=== PATIENT | male | born 1955 | race African-American/Black ===

== ENCOUNTER 2017-04-23 19:15 | Emergency (ER) | payer MEDICAID ==
[~2017-04-23] VITALS: Ht 172.7 cm; Wt 104.3 kg
[2017-04-23 19:45] VITALS: BP_SYST 117
[2017-04-23] MEDS ORDERED: methylPREDNISolone SOD SUCC/PF 62.5 MG/ML VIAL IM ONE (21:00)
[2017-04-23] MEDS ORDERED: DIPHENHYDRAMINE HCL 50 MG CAPSULE PO ONE (21:00)
[2017-04-23 21:25] VITALS: BP_SYST 118
== END 2017-04-23 21:28 | disposition home or self-care (01) ==
LOC: SED 19:15
DX: T78.49XA Other allergy, initial encounter (principal); R23.8 Other skin changes; M79.89 Other specified soft tissue disorders; X58.XXXA Exposure to other specified factors, initial encounter
CPT/HCPCS: 96372; 99283; J2930; Q0163

== ENCOUNTER 2018-06-07 17:38 | Emergency (ER) | payer MEDICAID ==
[~2018-06-07] VITALS: Ht 170.2 cm; Wt 104.3 kg
[2018-06-07 17:45] VITALS: BP_SYST 150
--- NOTE | 2018-06-07 17:50 | NUR ---
Patient to ER bed 1 for evaluation.
--- NOTE | 2018-06-07 18:00 | NUR ---
Pt presents to ED c/o Allergic reaction.
[2018-06-07] MEDS ORDERED: DIPHENHYDRAMINE INJ 50 MG/ML VIAL ONE (18:08)
[2018-06-07] MEDS ORDERED: EPINEPHrine 1 MG/ML AMP ONE (18:09)
[2018-06-07] MEDS ORDERED: methylPREDNISolone SOD SUCC/PF 62.5 MG/ML VIAL ONE (18:09)
--- NOTE | 2018-06-07 18:20 | NUR ---
ER at bedside examining patient.
--- NOTE | 2018-06-07 18:25 | NUR ---
Pt reports ease in symptoms.
[2018-06-07] MEDS ORDERED: methylPREDNISolone SOD SUCC/PF 62.5 MG/ML VIAL IVP ONE (18:30)
[2018-06-07] MEDS ORDERED: DIPHENHYDRAMINE INJ 50 MG/ML VIAL IVP ONE (18:30)
[2018-06-07] MEDS ORDERED: EPINEPHrine 1 MG/ML AMP IM ONE (18:30)
--- NOTE | 2018-06-07 18:31 | NUR ---
Pt medicated tolerated well.
--- NOTE | 2018-06-07 19:00 | NUR ---
Dr. Looney at bedside for reevaluation.
[2018-06-07 19:48] VITALS: BP_SYST 143
--- NOTE | 2018-06-07 19:48 | NUR ---
Patient given written and verbal discharge instructions and verbalizes understanding. ER MD Looney discussed with patient the results and treatment provided. Patient in stable condition. ID arm band removed. IV catheter removed intact and dressing applied, no active bleeding. Rx of Prednisone, Zyrtec given. Patient educated on pain management and to follow up with PMD. Pain Scale 0. Opportunity for questions provided and answered. Medication side effect fact sheet provided.
== END 2018-06-07 19:48 | disposition home or self-care (01) ==
LOC: SED 17:38
DX: T78.3XXA Angioneurotic edema, initial encounter (principal)
CPT/HCPCS: 96372; 96374; 96375; 99284; J0171; J1200; J2930

== ENCOUNTER 2020-01-12 07:57 | Emergency (ER) | payer OTHER, MEDICAID ==
[~2020-01-12] VITALS: Ht 172.7 cm; Wt 88.5 kg
[2020-01-12 08:12] VITALS: BP_SYST 128
[2020-01-12 08:48] LABS: BASOPHILS % (AUTO) 0.7 % (0.0-2.0); EOSINOPHILS # (AUTO) 0.4 K/uL (0.0-0.4); EOSINOPHILS % (AUTO) 7.4 % (0.0-4.0); HEMATOCRIT 43.1 % (36-54); HEMOGLOBIN 13.9 g/dL (14.0-18.0); LYMPHOCYTES # (AUTO) 1.4 K/uL (1.0-5.5); LYMPHOCYTES % (AUTO) 24.7 % (20.5-51.5); MEAN CORPUSCULAR HEMOGLOBIN 28 pg (27-31); MEAN CORPUSCULAR HGB CONC 32 % (32-36); MEAN CORPUSCULAR VOLUME 86 fL (79.0-98.0); MONOCYTES # (AUTO) 0.4 K/uL (0.0-1.0); MONOCYTES % (AUTO) 6.5 % (1.7-9.3); NEUTROPHILS # (AUTO) 3.3 K/uL (1.8-7.7); NEUTROPHILS % (AUTO) 60.7 % (40.0-70.0); PLATELET COUNT (AUTO) 174 K/uL (130-430); RED BLOOD CELL COUNT(AUTO) 5.01 MIL/uL (4.2-6.2); RED CELL DISTRIBUTION WIDTH 15.4 % (9.0-15.0); WHITE BLOOD COUNT (AUTO) 5.5 K/uL (4.8-10.8)
[2020-01-12 09:04] LABS: CALCIUM 8.6 mg/dL (8.4-11.0); POTASSIUM 4.2 mmol/L (3.5-5.1)
[2020-01-12 09:05] LABS: CREATININE 1.08 mg/dL (0.55-1.30)
[2020-01-12 09:15] LABS: PROTHROMBIN TIME 10.4 SECS (9.5-12.5)
[2020-01-12 09:18] LABS: ALBUMIN 3.3 g/dL (3.4-4.8); C-REACTIVE PROTEIN QUANT 0.9 mg/dL (0-0.5); TOTAL BILIRUBIN 0.7 mg/dL (0.0-1.0)
[2020-01-12 10:15] VITALS: BP_SYST 128
[2020-01-14] MEDS ORDERED: ASPI-1153 PO (21:24)
== END 2020-01-12 10:15 | disposition home or self-care (01) ==
LOC: SED 07:57
DX: B37.9 Candidiasis, unspecified (principal); L30.9 Dermatitis, unspecified
CPT/HCPCS: 36415; 80053; 83605; 85025; 85610-TC; 85730-TC; 86140; 99283

== ENCOUNTER 2024-04-25 04:45 | Observation (INO) | payer OTHER ==
[~2024-04-25] VITALS: Ht 175.3 cm; Wt 106.3 kg
[~2024-04-25 04:45] MED LIST: ASPI-1393 PO; CEPH-568 PO; PRED10TA PO
[2024-04-25 05:00] VITALS: BP_SYST 160; PULSE 57; RESP 20; TEMP 98.1; O2SAT 100
[2024-04-25 06:21] LABS: BASOPHILS % (AUTO) 0.6 % (0.0-2.0); EOSINOPHILS # (AUTO) 0.2 K/uL (0.0-0.4); EOSINOPHILS % (AUTO) 4.1 % (0.0-4.0); HEMATOCRIT 39.5 % (36-54); HEMOGLOBIN 12.7 g/dL (14.0-18.0); LYMPHOCYTES # (AUTO) 2.3 K/uL (1.0-5.5); LYMPHOCYTES % (AUTO) 43.1 % (20.5-51.5); MEAN CORPUSCULAR HEMOGLOBIN 27 pg (27-31); MEAN CORPUSCULAR HGB CONC 32 % (32-36); MEAN CORPUSCULAR VOLUME 83 fL (79.0-98.0); MONOCYTES # (AUTO) 0.5 K/uL (0.0-1.0); MONOCYTES % (AUTO) 8.3 % (1.7-9.3); NEUTROPHILS # (AUTO) 2.4 K/uL (1.8-7.7); NEUTROPHILS % (AUTO) 43.9 % (40.0-70.0); PLATELET COUNT (AUTO) 167 K/uL (130-430); RED BLOOD CELL COUNT(AUTO) 4.75 MIL/uL (4.2-6.2); RED CELL DISTRIBUTION WIDTH 15.4 % (9.0-15.0); WHITE BLOOD COUNT (AUTO) 5.4 K/uL (4.8-10.8)
[2024-04-25] MEDS ORDERED: ASPI-989 PO (06:26)
[2024-04-25] MEDS ORDERED: ATORVASTATIN (06:26)
[2024-04-25 06:28] LABS: ALANINE AMINOTRANSFERASE 15 U/L (12-78); ALBUMIN 3.1 g/dL (3.4-4.8); ANION GAP 9 (5-15); ASPARTATE AMINOTRANSFERASE 23 U/L (10-37); BILIRUBIN,DIRECT 0.2 mg/dL (0.0-0.3); CALCIUM 8.8 mg/dL (8.4-11.0); CARBON DIOXIDE 27 mmol/L (23-29); CHLORIDE 109 mmol/L (98-107); CREATININE 1.03 mg/dL (0.55-1.30); GLUCOSE 95 mg/dL (74-106); POTASSIUM 3.8 mmol/L (3.5-5.1); SODIUM SERUM 145 mmol/L (136-145); TOTAL BILIRUBIN 0.6 mg/dL (0.0-1.0); TOTAL PROTEIN, SERUM 6.7 g/dL (6.4-8.3); UREA NITROGEN, BLOOD 13 mg/dL (8-21)
[2024-04-25 06:29] LABS: GFR AFRICAN AMERICAN 92 mL/min (>90); GFR NON AFRICAN-AMERICAN 76 mL/min (>90)
[2024-04-25] MEDS ORDERED: iohexoL 300 mgI/mL, 150 ML INFUS..BTL IV ONE (07:41)
[2024-04-25] MEDS ORDERED: traMADol HCL HCL 50 MG TABLET (ULTRAM) PO PRN (09:30)
[2024-04-25] MEDS: ASPIRIN 81 MG TAB.CHEW PO ONE (11:56)
[2024-04-25 14:14] VITALS: BP_SYST 134; PULSE 52; RESP 18; TEMP 97.6; O2SAT 100
[2024-04-25 16:27] LABS: CHOLESTEROL 166 mg/dL (<200); HDL CHOLESTEROL 66 mg/dL (>45); TRIGLYCERIDES 77 mg/dL (30-150)
[2024-04-25 20:00] VITALS: BP_SYST 134; PULSE 53; RESP 18; TEMP 97.9; O2SAT 100
[2024-04-25] MEDS: GABAPENTIN 300 MG CAPSULE PO ONE (20:53)
[2024-04-26 00:30] VITALS: BP_SYST 146; PULSE 63; RESP 18; TEMP 97.8; O2SAT 99
[2024-04-26 08:00] VITALS: BP_SYST 127; PULSE 55; RESP 16; TEMP 97.5; O2SAT 98
[2024-04-26 08:06] LABS: BASOPHILS % (AUTO) 0.1 % (0.0-2.0); EOSINOPHILS # (AUTO) 0.2 K/uL (0.0-0.4); EOSINOPHILS % (AUTO) 4.6 % (0.0-4.0); HEMATOCRIT 39.9 % (36-54); HEMOGLOBIN 12.9 g/dL (14.0-18.0); LYMPHOCYTES # (AUTO) 1.9 K/uL (1.0-5.5); MEAN CORPUSCULAR HEMOGLOBIN 27 pg (27-31); MEAN CORPUSCULAR HGB CONC 32 % (32-36); MEAN CORPUSCULAR VOLUME 83 fL (79.0-98.0); MONOCYTES # (AUTO) 0.4 K/uL (0.0-1.0); MONOCYTES % (AUTO) 7.8 % (1.7-9.3); NEUTROPHILS # (AUTO) 2.2 K/uL (1.8-7.7); NEUTROPHILS % (AUTO) 47.5 % (40.0-70.0); PLATELET COUNT (AUTO) 148 K/uL (130-430); RED BLOOD CELL COUNT(AUTO) 4.82 MIL/uL (4.2-6.2); RED CELL DISTRIBUTION WIDTH 14.9 % (9.0-15.0); WHITE BLOOD COUNT (AUTO) 4.6 K/uL (4.8-10.8)
[2024-04-26 08:27] LABS: CALCIUM 8.9 mg/dL (8.4-11.0); CREATININE 1.02 mg/dL (0.55-1.30); POTASSIUM 3.7 mmol/L (3.5-5.1)
[2024-04-26] MEDS: ASPIRIN 325 MG TABLET PO SCH (09:00)
[2024-04-26] MEDS: ASPIRIN 81 MG TAB.CHEW PO SCH (09:21)
[2024-04-26 12:00] VITALS: BP_SYST 132; PULSE 58; RESP 16; TEMP 97.6; O2SAT 99
[2024-04-26] MEDS: ATORVASTATIN 20 MG TABLET PO ONE (14:47)
[2024-04-26 16:00] VITALS: BP_SYST 129; PULSE 56; RESP 16; TEMP 97.5; O2SAT 99
[2024-04-26] MEDS ORDERED: LIP20 PO (17:19)
[2024-04-26 17:52] VITALS: BP_SYST 129; PULSE 56; RESP 16; TEMP 97.5; O2SAT 99
[2024-04-27] MEDS ORDERED: ATORVASTATIN 20 MG TABLET PO SCH (09:00)
== END 2024-04-26 18:00 | disposition home or self-care (01) ==
LOC: SED 04:45 → STU 08:22 → INTOOBSV 09:19 → STU 12:25
PROVIDERS: ADMIT Specialist; ATTEND Specialist
DX: R07.89 Other chest pain (principal); I25.10 Atherosclerotic heart disease of native coronary artery without angina pectoris; E78.5 Hyperlipidemia, unspecified; E66.9 Obesity, unspecified; Z79.899 Other long term (current) drug therapy; Z68.34 Body mass index [BMI] 34.0-34.9, adult
CPT/HCPCS: 80076; 80061; 80048 ×2; 83880; 85025 ×2; 85379; 84484 ×2; 36415 ×2; 71045; 71275; 99285; 93306; 97116; 97162; Q9967; G0378 ×2